=== PATIENT | male | born 1980 | race Caucasian/White ===

== ENCOUNTER → 2017-01-18 | Outpatient (CLI) | payer OTHER ==
[~2017-01-18] MED LIST: ALLO10TA PO; CONRAY-43 43% 50ML VIAL (Q9960) As Ordered ONE; DOXY100C37 PO; LIDOCAINE 1% MDV 20ML VIAL As Ordered ONE; TRIAMCINOLONE ACETONIDE SUSP 40 MG/ML VIAL (J3301) As Ordered ONE
--- NOTE | 2017-01-18 15:57 | REP ---
LEFT HIP ARTHROGRAM: The procedure was performed by MINDY Mcdonald under the direct supervision of Dr. Joyner. The risks, benefits, and complications of this procedure were discussed with the patient prior to the examination. Informed consent was obtained both verbally and written. The left femoral neck was localized using fluoroscopic guidance. The skin was marked, prepped and draped in the usual sterile fashion. A procedural "time-out" was performed to ensure that the correct patient, site, and procedure were being performed. 1% lidocaine was used for a local anesthetic. Under fluoroscopic guidance a 22 gauge spinal needle was inserted and advanced to the femoral neck. 0.5 mL of Conray 60 was injected to verify placement of the needle. 10 mL of a solution containing 9 mL of 1% lidocaine and 1 mL of Kenalog 40 were injected into the joint space. The needle was then removed. The patient tolerated the procedure well and had no immediate complications. Fluoroscopy time was 14 seconds. Reviewed by MINDY Fernandez 01/18/2017 04:05 PEdited and Signed by Zohaib Joyner MD 01/18/2017 04:49 P
== END ==
LOC: M RADPRO 10:00
PROVIDERS: ATTEND Orthopaedic Surgery
DX: M25.852 Other specified joint disorders, left hip (principal)
CPT/HCPCS: 20610; 77002; J3301; Q9960

== ENCOUNTER 2017-02-22 10:27 | Emergency (ER) | payer OTHER ==
[~2017-02-22] VITALS: Ht 170.2 cm; Wt 95.5 kg
[2017-02-22 10:28] VITALS: BP 149/95
[2017-02-22] MEDS ORDERED: ALLO10TA PO (10:37)
[2017-02-22] MEDS ORDERED: DOXY100C37 PO (11:37)
[2017-02-22] MEDS ORDERED: DOXYCYCLINE HYCLATE 100 MG TAB PO ONE (11:45)
== END 2017-02-22 11:49 | disposition home or self-care (01) ==
LOC: M ED 10:27
DX: L03.115 Cellulitis of right lower limb (principal); M10.9 Gout, unspecified

== ENCOUNTER 2017-05-28 19:58 | Emergency (ER) | payer OTHER ==
[2017-05-28] MEDS: DERMABOND TOPICAL SKIN ADHESIVE TOP (22:13)
[2017-05-28] MEDS: ADACEL/BOOSTRIX VACCINE (DIPHTH/PERTUSS/ACELL/TETANUS)0.5ML SYR (90715) IM (22:45)
== END 2017-05-28 23:12 | disposition home or self-care (01) ==
LOC: M ED 19:58
DX: S61.231A Puncture wound without foreign body of left index finger without damage to nail, initial encounter (principal); W26.0XXA Contact with knife, initial encounter; Y92.9 Unspecified place or not applicable; Y93.9 Activity, unspecified; M16.12 Unilateral primary osteoarthritis, left hip
CPT/HCPCS: 90715

== ENCOUNTER 2018-12-15 20:54 | Emergency (ER) | payer OTHER ==
[~2018-12-15] VITALS: Ht 170.2 cm; Wt 99.1 kg
[~2018-12-15 20:54] MED LIST changes: -CONRAY-43 43% 50ML VIAL (Q9960) As Ordered ONE; +IBUP80TA PO; -LIDOCAINE 1% MDV 20ML VIAL As Ordered ONE; -TRIAMCINOLONE ACETONIDE SUSP 40 MG/ML VIAL (J3301) As Ordered ONE; +TYLE325T5 PO
[2018-12-15 21:30] LABS: BASO % 0.6 % (0.0-1.0); EOS # 0.2 10^3/uL (0.0-0.50); EOS % 3.2 % (0.0-3.0); HEMATOCRIT 43.1 % (42.0-52.0); LYMPH % 27.2 % (24.0-44.0); MEAN CORPUSCULAR HEMOGLOBIN 30.4 pg (27.0-33.0); MEAN CORPUSCULAR HGB CONC 34.8 g/dl (32.0-36.5); MEAN CORPUSCULAR VOLUME 87.4 fl (80.0-96.0); MONO # 0.7 10^3/uL (0.0-0.8); MONO % 9.6 % (0.0-5.0); NEUTROPHILS # 4.2 10^3/uL (1.8-7.7); NEUTROPHILS % 58.6 % (36.0-66.0); PLATELET COUNT, AUTOMATED 238 10^3/uL (150-450); RED BLOOD COUNT 4.93 10^6/uL (4.30-6.10); WHITE BLOOD COUNT 7.2 10^3/uL (4.0-10.0)
[2018-12-15] MEDS ORDERED: GI COCKTAIL 50ML BTL(HYOSCYAMINE/MAALOX/LIDOCAINE VISCOUS)(1:3:1) PO ONE (21:45)
[2018-12-15 21:58] LABS: ALBUMIN 3.9 GM/DL (3.2-5.2); ALT/SGPT 29 U/L (12-78); BILIRUBIN,DIRECT < 0.1 MG/DL (0.0-0.2); BILIRUBIN,TOTAL 0.2 MG/DL (0.2-1.0); BLOOD UREA NITROGEN 12 MG/DL (7-18); CALCIUM LEVEL 9.1 MG/DL (8.5-10.1); CARBON DIOXIDE LEVEL 26 MEQ/L (21-32); CHLORIDE LEVEL 106 MEQ/L (98-107); CK-MB VALUE MASS < 1.0 NG/ML (<3.6); CPK CREATINE PHOSPHOKINASE 119 U/L (39-308); CREATININE FOR GFR 1.11 MG/DL (0.70-1.30); GLOMERULAR FILTRATION RATE > 60.0 (>60); GLUCOSE, FASTING 103 MG/DL (70-100); MB/CK RELATIVE INDEX 0.84 (< OR =4); POTASSIUM SERUM 3.9 MEQ/L (3.5-5.1); SODIUM LEVEL 141 MEQ/L (136-145); TROPONIN I < 0.02 NG/ML (< 0.10)
[2018-12-15] MEDS ORDERED: KETOROLAC 30 MG/ML VIAL (J1885) IV ONE (23:00)
[2018-12-15] MEDS ORDERED: IBUP-1114 PO (23:59)
[2018-12-15] MEDS ORDERED: SUCR1TA PO (23:59)
[2018-12-15] MEDS ORDERED: OMEP40CA2 PO (23:59)
[2018-12-16 00:18] VITALS: BP 130/80
--- NOTE | 2018-12-16 05:44 | ECGEPIP ---
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
--- NOTE | 2018-12-17 09:32 | REP ---
AP PORTABLE CHEST: 12/15/2018. Clinical history: Chest pain. Findings: No prior study. The lung [place] are well inflated and without infiltrate, effusion, atelectasis or mass. The heart is not enlarged. Airway and aorta intact. No widening the mediastinum. The bony thorax unremarkable. Impression: 1. Negative AP portable chest. Electronically Signed by River Green MD 12/17/2018 08:16 P
== END 2018-12-16 00:27 | disposition home or self-care (01) ==
LOC: M ED 20:54
DX: K21.0 Gastro-esophageal reflux disease with esophagitis (principal); Z79.899 Other long term (current) drug therapy
CPT/HCPCS: 71045; 80048; 80076; 82550; 82553; 84484; 85025; 85379; 93005; 93041; 94760; 96374; 99285; J1885